=== PATIENT | female | born 1965 | race Caucasian/White ===

== ENCOUNTER 2022-04-06 15:41 | Outpatient (REF) | payer OTHER, SELFPAY ==
[2022-04-06 17:54] LABS: SARS PCR* Negative SARS-CoV-2 (Negative)
== END 2022-04-06 15:42 | disposition home or self-care (01) ==
LOC: NPINS 15:41
PROVIDERS: PCP Internal Medicine; Visit Provider Podiatrist
DX: Z20.822 Contact with and (suspected) exposure to COVID-19 (principal)
CPT/HCPCS: 87635

== ENCOUNTER 2022-04-09 08:32 | Day surgery (SDC) | payer OTHER, SELFPAY ==
[2022-04-09 09:00] VITALS: BP 137/77; PULSE 75; RESP 16; TEMP 36.6; O2SAT 97
[2022-04-09] MEDS: SODIUM CHLORIDE 0.9 % (FLUSH) 10 ML SYRINGE IVF (09:00)
[2022-04-09] MEDS: LACTATED RINGERS 1000 ML 1,000 ML 100 ML IV ×2 (09:00→12:13)
[2022-04-09] MEDS: ETHYL CHLORIDE 1 APPLICATION 1 APPLIC TOPICAL (09:00)
--- NOTE | 2022-04-09 10:31 | CRLHL7_ITS ---
For Patients: As a result of the Century Cures Act, medical imaging exams and procedure reports are released immediately into your electronic medical record. You may view this report before your referring provider. If you have questions, please contact your health care provider. Indication: INTRA OP RT FOOT BUNIONECTOMY Technique: Three fluoroscopic images of the right foot. Fluoroscopic time 20.9 seconds. IMPRESSION: Postoperative changes Lapidus bunionectomy. Postop changes to the 2nd metatarsal head and distal 5th metatarsal. Dictated by Carlyle Menendez MD @ 04/09/2022 1:23:57 PM (Electronically Signed)
--- NOTE | 2022-04-09 13:34 | W.ANESCHARGE ---
Anesthesia Charges Start Date/Time Anesthesia Start Date: 04/09/22 Anesthesia Start Time: 10:48 Stop Date/Time Anesthesia Stop Date: 04/09/22 Anesthesia Stop Time: 13:33 Summary Emergency: No
[2022-04-09 13:35] VITALS: BP 139/78; PULSE 69; RESP 16; TEMP 36.8; O2SAT 99
--- NOTE | 2022-04-09 13:39 | W.ANESCHARGE ---
Anesthesia Charges Start Date/Time Anesthesia Start Date: 04/09/22 Anesthesia Start Time: 10:48 Stop Date/Time Anesthesia Stop Date: 04/09/22 Anesthesia Stop Time: 13:33 Summary Emergency: No
[2022-04-09 13:50] VITALS: BP 135/83; PULSE 73; RESP 16; O2SAT 99
[2022-04-09 14:00] VITALS: BP 129/81; PULSE 71; RESP 16; O2SAT 97
[2022-04-09] MEDS: OxyCODONE/APAP 5-325 TABLET PO (14:55)
--- NOTE | 2022-04-09 16:28 | P.GSOP_ITS ---
Operative Note Date of procedure: 04/09/22 Type of Procedure: 1. Lapidus bunionectomy right foot 2. Sanjeev osteotomy 2nd metatarsal right foot 3. Tailor's bunion correction by osteotomy right foot Procedure Description: After discussing the risks and benefits of the procedure, the patient signed informed consent.? The operative site was marked and the patient was brought to the operating room and placed on the operating table in supine position.? Care was taken to pad the patient's pressure points.?? The patient was then [intubated/given sedation] by anesthesia.?? The operative site was then prepped and draped in the usual sterile fashion.? A time-out was then performed. The right leg was exsanguinated the tourniquet inflated. Dorsomedial curvilinear incisions made along the 1st metatarsal cuneiform joint extending over the 1st metatarsophalangeal joint. Incision was carried down through skin subcutaneous tissues. Blunt dissection was carried down to the 1st metatarsal joint capsule where a T-shaped capsular incision was performed. Capsular tissue reflected away from the head of the 1st metatarsal. Standard lateral release was then performed with blunt dissection down to the structures. The plantar medial joint capsule, dorsal fibular sesamoidal ligament, adductor tendon were all released. The extensor tendon at the level of the metatarsal cuneiform joint was retracted laterally. Neurovascular structures carefully protected. First metatarsal cuneiform joint was incised and the capsular tissue reflected away from joint. A dorsally placed joint plumbing contractor was applied and the joint distracted. Utilizing a combination of osteotome, curette and sagittal saw and the joint was prepped down to healthy bleeding subchondral bone. Multiple drill holes were made to the opposing fusion surfaces and each surface was fish-scaled with an osteotome. The Lapifuse jig was applied medially. Linear incisions made over the 2nd metatarsophalangeal joint. Incision was deepened with a hemostat along the lateral aspect the 2nd metatarsal. The other part of the jig was applied over the neck of the metatarsal. The 1st metatarsal was then corrected in all 3 planes and the jig tightened.. C-arm confirmed position. Guide pin was then placed from the 1st metatarsal base on the plantar medial aspect across the fusion into the middle cuneiform. C-arm confirmed position. 4.0 mm cannulated screw was then applied. Excellent compression no lester across the fusion site. Dorsal medial plate was then applied and 3.5 mm locking screws used to anchor the plate to bone. First metatarsal head was remodeled using a sagittal saw and rotary bur. C-arm images confirmed excellent correction and placement of hardware. The 1st MPJ joint capsule was then remodeled and repaired with 3-0 Vicryl. Subcutaneous tissues reapproximated with 4-0 Monocryl. The skin closed with 4-0 Prolene. Through the 2nd MPJ incision blunt dissection was taken down to the extensor tendon which was retracted laterally. A linear capsular incision was made and capsular tissue reflected away from the 2nd metatarsal head. A Sanjeev osteotomy was performed in the capital fragment shifted proximal 3 mm. It was then fixated with a 2.0 mm twist off screw. Stable fixation was achieved in the dorsal bony overhang was removed with a rongeur. Wound was thoroughly irrigated with normal sterile saline. Joint capsule was then repaired with 4-0 Vicryl. Subcutaneous tissues reapproximated 4-0 Monocryl. Skin closed with 4-0 Prolene. Linear incision was made over the dorsal lateral aspect of the 5th metatarsal head and distal shaft. The incision was carried down through skin subcutaneous tissues. Blunt dissection is carried down to the joint capsule. Linear capsule incision was made and the 5th metatarsal head and distal shaft exposed. A long plantar arm osteotomy was not performed with use of the osteotomy guide. Capital fragment was then transposed medially and rotated. Osteotomy was fixated with 2.5 mm cannulated screws x2. Sagittal saw and rotary bur were used to remodel the 5th metatarsal head and distal shaft. Multiple C-arm images confirmed excellent position and correction. Wound was thoroughly irrigated with sterile saline and the joint capsule repaired with 4-0 Vicryl. Subcutaneous tissues repaired with 4-0 Monocryl and skin closed with 4-0 Prolene. Tourniquet was released prior to closure all bleeding vessels cauterized. Final C-arm images confirmed excellent reconstruction of foot. Sterile dressings were applied. The patient was then woken and transported to the recovery area in stable condition. The patient tolerated the procedure well. She will be discharged per Anesthesia. She is weight-bearing as tolerated in a Cam boot to the heel with crutch assistance. She is given both written and verbal postop instructio ns. She is given oxycodone for pain. She will follow up in clinic in 2-3 days. Implants: [place] Lapifuse plate with 3.5 mm locking screws x4, 4.0 cannulated screw x1, 2.5 mm cannulated screw x2, 2.0 mm twist off screw x1. Anesthesia: MAC Surgeon: Rory Claire DPM Estimated blood loss (mL): 10 Condition: stable Disposition: same day
--- NOTE | 2022-04-10 10:48 | SUR.PREOP ---
CHARTING ON PATIENT WAS BACK DATED TO 04/09/22 SINCE THE ELECTRONIC CHARTING WAS DOWN ON 04/09. ON ADMISSION, PT WAS ANXIOUS AND TEARFUL. APPLIED CALMING AROMATHERAPY PATCH. PT'S IS IN THE ROOM,SUPPORTIVE AT BEDSIDE.
== END 2022-04-09 15:41 | disposition home or self-care (01) ==
PROVIDERS: PCP Internal Medicine; Visit Provider Podiatrist
PROC: (CPT 28292; principal; 2022-04-09 09:35)
DX: M21.611 Bunion of right foot (principal); M20.11 Hallux valgus (acquired), right foot; M21.621 Bunionette of right foot
CPT/HCPCS: 28297; 28308; 28110; 01480; 73620; 76000; A9270; J2250; J2405; J2704; J3010; J7120

== ENCOUNTER 2022-08-13 15:45 | Outpatient (RCR) | payer OTHER, SELFPAY | END 2023-03-28 23:59 | disposition home or self-care (01) | PROVIDERS: PCP Internal Medicine; Visit Provider Podiatrist | DX: Z98.890 Other specified postprocedural states (principal); Z51.89 Encounter for other specified aftercare | CPT/HCPCS: 97110; 97140; 97162; 97535 ==